=== PATIENT | male | born 1990 | race Caucasian/White ===

== ENCOUNTER 2017-11-22 15:54 | Emergency (ER) | payer OTHER ==
[~2017-11-22] VITALS: Ht 182.9 cm; Wt 99.8 kg
== END 2017-11-22 16:17 | disposition home or self-care (01) ==
LOC: ER 15:54
DX: L02.512 Cutaneous abscess of left hand (principal)
CPT/HCPCS: 99282

== ENCOUNTER 2018-08-13 20:03 | Emergency (ER) | payer SELFPAY ==
[~2018-08-13] VITALS: Ht 182.9 cm; Wt 99.8 kg
== END 2018-08-13 21:02 | disposition left against medical advice (07) ==
LOC: ER 20:03
DX: M54.41 Lumbago with sciatica, right side (principal)